=== PATIENT | female | born 1940 | race Caucasian/White ===

== ENCOUNTER 2016-12-09 12:10 | Emergency (ER) | payer MEDICARE, OTHER ==
[2016-12-09 12:25] LABS: APPEARANCE,URINE Clear (CLEAR); COLOR,URINE Yellow (YELLOW); OCCULT BLOOD,URINE Negative (NEGATIVE); PH URINE 6.5 (5.0 - 8.0)
[2016-12-09 12:26] LABS: BASOPHILS % 0.4 (0.0-1.5); EOSINOPHILS % 3.6 % (0.0-6.8); MEAN CORPUSCULAR HEMOGLOBIN 32.5 pg (28.0-34.0); MONOCYTES # 0.2 # k/uL (0.0-0.9); MONOCYTES % 5.1 % (0.0-11.0); NEUTROPHILS # 3.2 # k/uL (1.4-7.7)
[2016-12-09 12:41] LABS: eGFR (African) > 60; eGFR (Non-African) > 60
[2016-12-09] MEDS ORDERED: MAGNESIUM CITRATE 296 ML BOTTLE PO ONE ×2 (12:55)
--- NOTE | 2016-12-09 12:58 | ED Physician Documentation ---
Abdominal Pain - HISTORIAN Historian: patient - HPI Stated Complaint: RLQ Pain Chief Complaint: Abdominal Pain Onset: other (last night) Timing: worse Context: bad food Quality: dull, cramping Associated Symptoms: nausea, vomiting. denies: fever, chills, diarrhea Exacerbated by: nothing Relieved by: nothing Further Comments: yes (75 year old female patient presents with complaints of Right side abdominal pain. Patient states her doctors in [place] have done multiple work ups, reports history of ulcer. Patient denies nausea, diarrhea or vomiting. States she did not have a BM for 2 days, small BM this morning. Patient is in [place] visiting her sister.) - ROS CONST: no problems GI/: constipation CVS/RESP: none EYES/ENT: none MS/SKIN/LYMPH: none NEURO/PSYCH: none - SOCIAL HX Smoking History: non-smoker - FAMILY HX Family History: denies: none - PAST HX Past History: kidney stones, other (H pylori, ulcer, hernia, OA, chronic back pain, AMI) Home Medications: Ambulatory Orders Medication Instructions Recorded Lisinopril/Hydrochlorothiazide 1 tab PO DAILY 12/09/16 [Prinizide] Metoprolol Tartrate [Lopressor] 25 mg PO DAILY 12/09/16 Nabumetone [Relafen] 500 mg PO BID 12/09/16 Nitazoxanide [Alinia] 500 mg PO DAILY 12/09/16 Pantoprazole Sodium [Protonix] 40 mg PO 0700 12/09/16 Pregabalin [Lyrica] 150 mg PO BID 12/09/16 Ropinirole HCl [Ropinirole HCl] 0.5 mg PO HS 12/09/16 Allergies/Adverse Reactions: Allergies Allergy/AdvReac Type Severity Reaction Status Date / Time No Known Allergies Allergy Unverified 12/09/16 12:28 - VITAL SIGNS Vital Signs: Vital Signs Temp Pulse Resp BP Pulse Ox 97.6 F 80 18 112/60 98 12/09/16 12:10 12/09/16 12:10 12/09/16 12:10 12/09/16 12:10 12/09/16 12:10 - REVIEWED ASSESSMENTS Nursing Assessment Reviewed: Yes Vitals Reviewed: Yes Progress - Progress Progress: Reviewed discharge instructions with patient and sister. 1/2 bottle magnesium citrate given in Er. ED Results Lab/Radiology - Lab Results Lab Results: Lab Results 12/09/16 12/09/16 12/09/16 12:20 12:20 12:20 WBC 4.60 K/ul K/ul (4.00-12.00) RBC 4.04 M/ul M/ul (3.90-5.20) Hgb 13.1 g/dL g/dL (12.0-16.0) Hct 39.4 % % (34.5-46.5) MCV 97.6 fl fl (80.0-100.0) MCH 32.5 pg pg (28.0-34.0) MCHC 33.3 g/dL g/dL (30.0-36.0) RDW 12.8 % % (11.3-14.3) Plt Count 133 K/mm3 K/mm3 (130-400) Neut % (Auto) 68.7 % % (39.0-79.0) Lymph % (Auto) 21.0 % % (16.0-50.0) [place] % (Auto) 5.1 % % (0.0-11.0) Eos % (Auto) 3.6 % % (0.0-6.8) Baso % (Auto) 0.4 (0.0-1.5) Neut # 3.2 # k/uL # k/uL (1.4-7.7) Lymph # 1.0 # k/uL # k/uL (0.6-4.0) Addison # 0.2 # k/uL # k/uL (0.0-0.9) Eos # 0.2 # k/uL # k/uL (0.0-0.6) Baso # 0.0 # k/uL # k/uL (0.0-0.5) Reactive Lymphs % 1.3 % % (0.0-5.0) Reactive Lymphs # 0.1 # k/uL # k/uL (0.0-0.8) Sodium 141 mmol/L mmol/L (136-145) Potassium 4.1 mmol/L mmol/L (3.5-5.0) Chloride 110 mmol/L mmol/L (98-110) Carbon Dioxide 33 mmol/L H mmol/L (20-32) BUN 20 mg/dL mg/dL (10-26) Creatinine 0.8 mg/dL mg/dL (0.4-1.5) Estimated Creat Clear 94 Est GFR ( Amer) > 60 (60 - ) Est GFR (Non-Af Amer) > 60 (60 - ) Glucose 128 mg/dL H mg/dL (70-99) Calcium 9.7 mg/dL mg/dL (8.5-10.5) Total Bilirubin 0.3 mg/dL mg/dL (0.2-1.2) AST 22 U/L U/L (0-41) ALT 23 U/L U/L (0-45) Alkaline Phosphatase 93 U/L U/L (46-116) Total Protein 6.9 g/dL g/dL (6.0-8.5) Albumin 4.4 g/dL g/dL (3.0-5.5) Amylase 57 U/L U/L (20-104) Urine Color Yellow (YELLOW) Urine Appearance Clear (CLEAR) Urine pH 6.5 (5.0 - 8.0) Ur Specific [place] 1.020 (1.010-1.030) Urine Protein Negative mg/dL mg/dL (NEGATIVE) Urine Ketones Negative mg/dL mg/dL (NEGATIVE) Urine Occult Blood Negative (NEGATIVE) Urine Nitrite Negative (NEGATIVE) Urine Bilirubin Negative (NEGATIVE) Urine Urobilinogen 1.0 Eu Eu (0.2-1.0) Ur Leukocyte Esterase Negative (NEGATIVE) Urine Glucose Negative mg/dL mg/dL (NEGATIVE) - Radiology Radiology Impressions: Abdomen -one view CLINICAL HISTORY: Worsening mid abdominal pain. FINDINGS: Examination abdomen in supine and upright views demonstrates gas and stool in the colon. Degenerative changes are seen in the hips and lumbar vertebrae. Pelvic calcifications are evident consistent with phleboliths. There is no obvious renal or ureteral calculus. Properitoneal fat lines are preserved. There is no evidence of obstruction or free air. IMPRESSION: Degenerative changes in lumbar vertebrae and hips. Gas and stool the colon. No obstruction or free air. - Orders Orders: ED Orders Category Date Time Status Place Saline Lock/IV NOW Care 12/09/16 12:13 Active ABDOMEN COMPLETE [RAD] Stat Exams 12/09/16 Ordered AMYLASE Stat Lab 12/09/16 12:20 Completed CBC/PLATELET/DIFF Stat Lab 12/09/16 12:20 Completed CMP Stat Lab 12/09/16 12:20 Completed UA W/MICRO IF INDICATED Stat Lab 12/09/16 12:20 Completed Magnesium Citrate [Citrate of Magnesia] Med 12/09/16 12:55 Discontinued 296 ml PO .STK-MED ONE Abdominal Pain Physical Exam - Physical Exam General Appearance: mild distress EENT: eye inspection normal, TABBY RESPIRATORY: no resp distress, chest non-tender, breath sounds normal CVS: reg rate & rhythm, heart sounds normal, equal pulses, no murmur, no gallop , PMI nml, no JVD, no friction rub, 24 ABDOMEN: soft, no organomegaly, no abdominal bruit, no distension, tenderness ( right side with deep palpation), abnormal bowel sounds (hypoactive) SKIN: normal color, warm/dry, NR, INT, PAL, DR EXTREMITIES: non-tender, normal range of motion, no evidence of injury, no edema , J, 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 If you have NOT had a bowel movement by morning, finish the 1/2 bottle. Home Medications: Ambulatory Orders Lisinopril/Hydrochlorothiazide [Prinizide] 1 tab PO DAILY 12/09/16 Metoprolol Tartrate [Lopressor] 25 mg PO DAILY 12/09/16 Nabumetone [Relafen] 500 mg PO BID 12/09/16 Nitazoxanide [Alinia] 500 mg PO DAILY 12/09/16 Pantoprazole Sodium [Protonix] 40 mg PO 0700 12/09/16 Pregabalin [Lyrica] 150 mg PO BID 12/09/16 Ropinirole HCl [Ropinirole HCl] 0.5 mg PO HS 12/09/16 Condition: Stable Disposition: 01 HOME, SELF-CARE Decision to Admit: NO Decision Time: 12:58
[2016-12-09 13:12] VITALS: BP 108/58
--- NOTE | 2016-12-09 18:54 | Diagnostic Imaging Report ---
[facility] [address] [facility].[address] 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 FINDINGS: Examination abdomen in supine and upright views demonstrates gas and stool in the colon. Degenerative changes are seen in the hips and lumbar vertebrae. Pelvic calcifications are evident consistent with phleboliths. There is no obvious renal or ureteral calculus. Properitoneal fat lines are preserved. There is no evidence of obstruction or free air. IMPRESSION: Degenerative changes in lumbar vertebrae and hips. Gas and stool the colon. No obstruction or free air. Electronically signed on Dec 09, 2016 12:55:05 PM INTERNAL RECRUITER by: Parish BUSTILLOS
== END 2016-12-09 13:08 | disposition home or self-care (01) ==
LOC: ED 12:10
DX: K59.09 Other constipation (principal)
CPT/HCPCS: 74020; 80053; 81002; 82150; 85025; S1016

== ENCOUNTER 2019-07-18 16:40 | Emergency (ER) | payer MEDICARE ==
[2019-07-18] MEDS ORDERED: ORPHENADRINE CITRATE 60 MG/2 ML ML ONE (18:35)
[2019-07-18] MEDS ORDERED: methylPREDNISolone SOD SUCC 125 MG/2 ML VIAL ONE (18:35)
--- NOTE | 2019-08-09 09:45 | Diagnostic Imaging Report ---
DAMARIS LEVINE [facility] [address] [facility] [address] [address] Report Submission Date: Jul 18, 2019 6:11:17 PM CDT Patient Study Name: DEV MARTINEZ Date: Jul 18, 2019 5:27:04 PM CDT Modality Type: DX Gender: F Description: PELVIS AP 1 OR 2 VIEWS : 44 Institution: [facility] Physician: DAMARIS LEVINE PELVIS AP HISTORY: PELVIS AND LEFT HIP PAIN FOR 2 DAYS; NO INJURY FINDINGS: Degenerative changes of both hip joints with chondrocalcinosis in the hip joints and symphysis pubis is present. Osteophyte formation of the femoral heads bilaterally is seen with narrowing the superior lateral aspect of the hip joints, right worse than left. No fractures are seen. Sacrum and SI joints are normal and the iliac wings are unremarkable. No pubic rami abnormality is seen. IMPRESSION: Chondrocalcinosis and degenerative changes of both hip joints. Electronically signed on Jul 18, 2019 6:11:17 PM CDT by: Jorge BUSTILLOS
--- NOTE | 2019-08-09 09:46 | Diagnostic Imaging Report ---
DAMARIS LEVINE [facility] [address] [facility].[address] [address] Report Submission Date: Jul 18, 2019 6:14:09 PM CDT Patient Study Name: DEV MARTINEZ Date: Jul 18, 2019 5:27:15 PM CDT Modality Type: DX Gender: F Description: KNEE 3 VIEWS : 44 Institution: [facility] Physician: DAMARIS LEVINE KNEE LEFT HISTORY: LEFT KNEE PAIN FOR 2 DAYS; NO INJURY. FINDINGS: AP, lateral and patellar views of the left knee demonstrates chondrocalcinosis to be present with osteophyte formation of the medial compartment of the knee joint. No fracture joint effusion is seen. Calcification at the medial collateral ligament attachment to the femoral condyle is present indicative of an old injury at this location. IMPRESSSION: Chondrocalcinosis and mild degenerative changes. No acute process. Electronically signed on Jul 18, 2019 6:14:09 PM CDT by: Jorge BUSTILLOS
== END 2019-07-18 18:21 ==
LOC: ED 16:40
DX: M16.0 Bilateral primary osteoarthritis of hip (principal); M17.12 Unilateral primary osteoarthritis, left knee
CPT/HCPCS: 99283; 99284; J2930; J2360

== ENCOUNTER 2019-07-31 12:12 | Emergency (ER) | payer MEDICARE, OTHER ==
--- NOTE | 2019-07-31 12:32 | ED Physician Documentation ---
General Adult - HISTORIAN Historian: patient - HPI Chief Complaint: General Adult Further Comments: yes (78 year old female patient presents with complaints of left leg and left hip pain. Patient has not taken any of her daily medications today. States she has not taken any pain medications today.) - ROS CONST: recent illness (seen in Er multiple times with pain complaints) EYES/ENT: none CVS/RESP: none MS/SKIN/LYMPH: leg pain (left), back pain - PAST HX Past History: A-Fib, hypertension Other History: other (chronic back pain) Surgeries/Procedures: cholecystectomy Allergies/Adverse Reactions: Allergies Allergy/AdvReac Type Severity Reaction Status Date / Time pregabalin [From Lyrica] Allergy Verified 07/31/19 12:46 Home Medications: Ambulatory Orders Medication Instructions Recorded Lisinopril/Hydrochlorothiazide 1 tab PO DAILY 12/09/16 [Prinizide] Metoprolol Tartrate [Lopressor] 25 mg PO DAILY 12/09/16 Nabumetone [Relafen] 500 mg PO BID 12/09/16 Nitazoxanide [Alinia] 500 mg PO DAILY 12/09/16 Pantoprazole Sodium [Protonix] 40 mg PO 0700 12/09/16 Pregabalin [Lyrica] 150 mg PO BID 12/09/16 Ropinirole HCl 0.5 mg PO HS 12/09/16 - SOCIAL HX Smoking History: cigarettes - FAMILY HX Family History: No - VITAL SIGNS Vital Signs: Vital Signs Temp Pulse Resp BP Pulse Ox 108/58 12/09/16 13:08 - REVIEWED ASSESSMENTS Nursing Assessment Reviewed: Yes Vitals Reviewed: Yes Progress - Progress Progress: Patient has been seen in July on 2, 5, 7 and 14 - old ER records reviewed; paper charts. Patient yelling at this provider "why is everyone asking about my medications". Patient yelling through most of H&P and ROS. Patient refused physical exam. Does c/o pain with palpation of left SI joint. Patient yelled at this provider multiple times regarding her last 3 visits and is uncooperative with exam and treatments. Recently completed medrol dose pack. Will treat pain while in ER. Referral to pain management completed. Patient able to walk out of ER. General Adult Physical Exam - PHYSICAL EXAM GENERAL APPEARANCE: agitated RESPIRATORY: no resp distress BACK: no CVA tenderness, other (left SI joint tenderness with palpation; patient will not allow complete exam) SKIN: warm/dry, normal color, other (poor turgor) NEURO: oriented X3, motor nml, mood/affect nml (agitated. ) Discharge Clincal Impression: Pain of left sacroiliac joint Chronic pain Qualifiers: Chronic pain type: other chronic pain Qualified Code(s): G89.29 - Other chronic pain Referrals: Primary Doctor,No [Primary Care Provider] - 2 Days Additional Instructions: You have treated for your sciatica pain while in the ER. 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 A referral to the pain management has been completed. They will call you for an appointment. Condition: Stable Disposition: 01 HOME, SELF-CARE Decision to Admit: NO Decision Time: 12:39
[2019-07-31 12:45] VITALS: BP 147/86
[2019-07-31] MEDS: methylPREDNISolone ACETATE 80 MG/ML VIAL IM ONE (12:48)
[2019-07-31] MEDS: BUTORPHANOL TARTRATE 1 MG/ML VIAL IM ONE (12:48)
== END 2019-07-31 12:49 | disposition home or self-care (01) ==
LOC: ED 12:12
DX: G89.29 Other chronic pain (principal); M53.3 Sacrococcygeal disorders, not elsewhere classified
CPT/HCPCS: 96372; 99282; 99283; J1040